=== PATIENT | male | born 1985 | race Caucasian/White ===

== ENCOUNTER → 2025-01-03 | Outpatient (CLI) | payer OTHER ==
[2025-01-03 16:10] VITALS: BP 121/75; PULSE 76; RESP 16; TEMP 98.4
--- NOTE | 2025-01-03 17:36 | P.SLEEP ---
History of Present Illness DATE: 01/03/2025 CONSULTATION/NEW PATIENT EVALUATION HISTORY OF PRESENT ILLNESS/SLEEP-WAKE EVALUATION: 39-year-old gentleman had b een evaluated in the sleep center for possible obstructive sleep apnea hypopnea syndrome. SLEEP SCHEDULE: Usually sleep [id number] PM to 4:45 AM on weekdays and until 7 AM on weekend. FALLING ASLEEP: No problems with falling asleep, no TV in bedroom. DURING SLEEP: Patient usually sleeps on the back and side position with snoring no history of hypnogogical hallucinations, sleep paralysis, or cataplexy. DURING THE DAY/WAKE STATE: Patient denied any significant excessive daytime sleepiness. [place] sleepiness scale is 3. Patient does not take naps. PAST MEDICAL HISTORY: Hypertension, diabetes, erythrocytosis. PAST SURGICAL HISTORY: None. MEDICATIONS: Metformin 500 mg, lisinopril 20 mg once a day. SOCIAL HISTORY: Please see below. FAMILY HISTORY: Please see below. REVIEW OF SYSTEMS: Snoring. No fevers. No double vision. No recent chest pain. No shortness of breath. No abdominal pain. No bleeding episodes. No blood in urine. No seizure episodes. PHYSICAL EXAMINATION: GENERAL: A pleasant patient without any distress. VITAL SIGNS: Please see below, weight 267 pounds, BMI 39.4. HEENT: PERRLA, EOMI. Evaluation of oropharynx showed tongue protrudes midline, low position of soft palate Mallampati 4. NECK: Supple. No JVD. Thyroid is not palpable. 18 inches in circumference. LUNGS: Clear to percussion and to auscultation. Good air exchange. No wheezing or rhonchi. HEART: S1, S2 regular. No murmurs, gallops or rubs. ABDOMEN: Soft and nontender. Bowel sounds are present. No organomegaly appreciated. EXTREMITIES: No clubbing or cyanosis. LAPIDARY APPRENTICE: Awake, alert, and oriented x3. Cranial nerves 2 to 7 intact. There is no fasciculation or atrophy noted. No focal deficits observed. ASSESSMENT: 1. Snoring, extremely low position of soft palate Mallampati 4, wide neck 18 inches in circumference, erythrocytosis. Obstructive sleep apnea hypopnea syndrome. 2. Erythrocytosis. 3. Hypertension. 4. Diabetes mellitus. 5 obesity BMI 39.4. PLAN: 1. Polysomnography for evaluation of patient's breathing during sleep. 2. Following plan after reading sleep study. 3. Preferable position during sleep on the side. 4. No driving if patient feels any sleepiness. Patient is aware of civil and criminal liability for unsafe driving. 5. Sleep hygiene with regular sleep time for at least 7.5-8 hours. 6. Watching and losing weight. Thank you very much for referring this patient for consultation. Sincerely, Farhad Guzman MD, PhD, FAASM. Diplomat of [place] [employer], Sleep Medicine Board by [place] [employer] [employer] Dining Room Supervisor of [facility] [place] cc: Janet Christian [facility] Past Medical History Past Medical History: Diabetes Mellitus, Hypertension, Pneumonia History of Any Multi-Drug Resistant Organisms: MRSA Date of last positivie culture/infection: 2016 MDRO Source:: Lungs Additional Past Surgical History / Comment(s): PRK Surgery Past Anesthesia/Blood Transfusion Reactions: No Reported Reaction Past Psychological History: No Psychological Hx Reported Smoking Status: Never smoker Past Alcohol Use History: Occasional Past Drug Use History: None Reported - Past Family History Father Family Medical History: Cancer, Hyperlipidemia, Hypertension Medications and Allergies Home Medications Medication Instructions Recorded Confirmed Type lisinopriL [Zestril] 20 mg PO DAILY 01/03/25 01/03/25 History metFORMIN HCL 500 mg PO DAILY 01/03/25 01/03/25 History Physical Exam Vitals: Vital Signs Temp Pulse Resp BP Pulse Ox 01/03/25 16:06 98.4 F 76 16 121/75 98 Intake and Output 01/03/25 01/03/25 01/03/25 06:59 14:59 22:59 Other: Weight 121.109 kg Sleep Note - Sleep Data ESS Total: 3 - Sleep Note Sleep Note: Temperature: 98.4 F Pulse Rate: 76 Respiratory Rate: 16 Blood Pressure: 121/75 SpO2: 98 Height: 5 ft 9 in Weight: 121.109 kg BMI: Neck Circumference: 18
== END ==
LOC: 3 N SLEEP 15:16
PROVIDERS: ATTEND Internal Medicine
DX: G47.33 Obstructive sleep apnea (adult) (pediatric) (principal); D75.1 Secondary polycythemia; I10 Essential (primary) hypertension; E11.9 Type 2 diabetes mellitus without complications; E66.9 Obesity, unspecified; Z68.39 Body mass index [BMI] 39.0-39.9, adult
CPT/HCPCS: 99202